=== PATIENT | female | born 1990 | race Hispanic/Latino ===

== ENCOUNTER 2024-01-27 18:21 | Emergency (ER) | payer BC, OTHER ==
[2024-01-27] MEDS ORDERED: Ondansetron ODT 4 MG TAB ONE (20:39)
[2024-01-27] MEDS ORDERED: Ketorolac Tromethamine 30 MG (1 mL) VIAL ONE (20:39)
== END 2024-01-27 22:00 | disposition home or self-care (01) ==
LOC: ERS 18:21
DX: S09.90XA Unspecified injury of head, initial encounter (principal); V43.62XA Car passenger injured in collision with other type car in traffic accident, initial encounter; M25.552 Pain in left hip
CPT/HCPCS: 70450; 72125; 96372; J1885; Q0162